=== PATIENT | female | born 1980 | race Caucasian/White ===

== ENCOUNTER 2022-05-20 16:01 | Outpatient (REF) | payer MEDICAID, SELFPAY ==
[2022-05-20 18:43] LABS: C Diff PCR Negative (Negative)
[2022-05-22 12:31] LABS: Campylobacter PCR Negative (Negative); Salmonella PCR Negative (Negative); Shiga Toxin PCR Negative (Negative); Shigella/Enteroinvasive Ecoli Negative (Negative)
[2022-05-24 21:36] LABS: Calprotectin 2255 mcg/g
== END 2022-05-20 16:02 | disposition home or self-care (01) ==
LOC: NCHCN 16:01
PROVIDERS: Visit Provider Nurse Practitioner Family
DX: R19.7 Diarrhea, unspecified (principal)
CPT/HCPCS: 87329; 87493; 87505; 83993; 87177

== ENCOUNTER 2022-08-27 10:17 | Outpatient (REF) | payer MEDICAID, SELFPAY ==
--- OUTSIDE RECORDS SUMMARY | 2022-08-27 10:21 | XMS_ITS | CCD ---
Author Name Unknown Address [address] [place] [address] [phone] Organization Unknown Address [address] [place] [address] [phone] Care Team Providers Care Brush Material Preparer Name Role Phone NEENABetiBASILIASAVANNAH Virgen Attending Physician [phone] Vital Signs Unknown or Not Available. Allergies Unknown or Not Available. Procedures Unknown or Not Available. History of Immunizations Unknown or Not Available. Problems Unknown or Not Available. Results ANTI MULLERIAN HORMONE ([facility]) * - Collect Date/Time: 04/16/2022 11:48 Test Name Code Test Result Test Units Test Ref Rang e Antimullerian Hormone, S 39498-9 1.4 N/A 0.03-5.5 ESTRADIOL E2 - Collect Date/ Time: 04/16/2022 11:48 Test Name Code Test Result Test Units Test Ref Rang e Estradiol 31 N/A See Note FSH (FOLICLE STIMULATING HOR JAQUI) - Collect Date/Time: 04/16/2022 11:48 Test Name Code Test Result Test Units Test Ref Rang e FSH 9.5 N/A See Note Active Medications Unknown or Not Available. Medications Administered During Visit Unknown or Not Available. Encounters Encounter Diagnosis Diagnosis Code Start Date Infertility study [id number] 04/16/2022 Social History Smoking Status Code Start Date End Date Never smoker [id number] Patient Decision Aids Unknown or Not Available. Discharge Instructions You were admitted to [facility] on 04/16/2022 11:35 with a principal diagnosis of Encounter for fertility testing You had the following tests done:ANTI MULLERIAN HORMONE ([facility])*ESTRADIOL E2FSH (FOLICLE STIMULATING HORMONE) You were discharged from [facility] on 04/16/2022 11:35 Should you have any questions prior to discharge, please contact a member of your healthcare team. If you have left the hospital and have any questions, please contact your primary care physician. Chief Complaint and Reason For Visit Unknown or Not Available. Function Status Unknown or Not Available. Plan of Care Unknown or Not Available. Referral/Transition of Care Unknown or Not Available.
--- OUTSIDE RECORDS SUMMARY | 2022-08-27 10:21 | XMS_ITS | CCD ---
Author Name Unknown Address [address] [place] [address] [phone] Organization Unknown Address [address] [place] [address] [phone] Care Team Providers Care Bagging Salvager Name Role Phone DARNELL COOK Attending Physician [phone] Vital Signs Unknown or Not Available. Allergies Unknown or Not Available. Procedures Unknown or Not Available. History of Immunizations Unknown or Not Available. Problems Unknown or Not Available. Results C REACTIVE PROTEIN HIGH SENS ITIVITY* - Collect Date/Time: 05/28/2022 10:49 Test Name Code Test Result Test Units Test Ref Rang e CRP-HIGH SENS. 73449-0 8.02 mg/L L=0.00 H=3 .00 CRP-HIGH SENS 94213-1 0.80 mg/dL L=0.00 H=0. 30 COMPREHENSIVE METABOLIC PANE L (CMP) - Collect Date/Time: 05/28/2022 10:49 Test Name Code Test Result Test Units Test Ref Rang e GLUCOSE 2345-7 98 mg/dL L=70 H=116 BUN 3094-0 9 mg/dL L=6 H=25 CREATININE 2160-0 0.93 mg/dL L=0.51 H=0.95 SODIUM SERUM 2951-2 139 mmol/L L=136 H=145 POTASSIUM SERUM 2823-3 3.4 mmol/L L=3.4 H=5 .2 CHLORIDE SERUM 2075-0 101 mmol/L L=96 H=110 CARBON DIOXIDE (CO2) 2028-9 32 mmol/L L=22 H=34 ANION GAP 47963-2 5.8 mmol/L CALCIUM SERUM 24254-7 8.7 mg/dL L=8.2 H=10. 2 BILIRUBIN TOTAL 1975-2 0.2 mg/dL L=0.0 H=1 .3 ALK. PHOS. 6768-6 54 U/L L=46 H=116 SGOT (AST) 1920-8 19 U/L L=15 H=37 SGPT (ALT) 1742-6 40 U/L L=12 H=78 TOTAL PROTEIN 2885-2 7.1 gm/dL L=6.0 H=8.0 ALBUMIN 1751-7 3.0 gm/dL L=3.4 H=5.0 AGE 42 years eGFR (non-Afr.Amer.) 80277-4 67 mL/min eGFR (Afr-British) 60833-6 81 mL/min HEMOGRAM + PLATELET WO DIFF - Collect Date/Time: 05/28/2022 10:49 Test Name Code Test Result Test Units Test Ref Rang e WBC 6690-2 11.34 th/cmm L=5.00 H=10.00 NRBC % 62342-4 0.0 % L=0.0 H=0.0 NRBC abs count 04733-8 0.0 mil/cmm L=0.0 H=0. 0 RBC 789-8 4.21 mil/cmm L=3.90 H=5.40 HEMOGLOBIN 718-7 12.2 gm/dL L=12.0 H=16.0 HEMATOCRIT 4544-3 38 % L=37 H=47 MCV 787-2 90 fL L=82 H=92 MCH 785-6 29.0 pg L=27.0 H=31.0 MCHC 786-4 32.2 % L=32.0 H=36.0 RDW-SD 788-0 38.5 fL L=39.0 H=49.0 PLATELET COUNT 777-3 413 th/cmm L=150 H=45 0 Active Medications Unknown or Not Available. Medications Administered During Visit Unknown or Not Available. Encounters Encounter Diagnosis Diagnosis Code Start Date Nonspecific ulcerative proctitis [id number] 05/28/2022 Social History Smoking Status Code Start Date End Date Never smoker [id number] Patient Decision Aids Unknown or Not Available. 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
--- OUTSIDE RECORDS SUMMARY | 2022-08-27 10:21 | XMS_ITS | CCD ---
Author Name Unknown Address [address] [place] [address] [id number] Organization Unknown Address [address] [place] [address] [phone] Care Team Providers Care Cafe Site Attendant Name Role Phone JESSICA ZACARIAS Attending Physician [phone] Vital Signs Unknown or Not Available. Allergies Unknown or Not Available. Procedures Unknown or Not Available. History of Immunizations Unknown or Not Available. Problems Unknown or Not Available. Results COMPREHENSIVE METABOLIC PANE L (CMP) - Collect Date/Time: 04/17/2021 08:43 Test Name Code Test Result Test Units Test Ref Rang e GLUCOSE 2345-7 94 mg/dL L=70 H=116 BUN 3094-0 18 mg/dL L=6 H=25 CREATININE 2160-0 0.96 mg/dL L=0.51 H=0.95 SODIUM SERUM 2951-2 139 mmol/L L=136 H=145 POTASSIUM SERUM 2823-3 3.8 mmol/L L=3.4 H=5 .2 CHLORIDE SERUM 2075-0 102 mmol/L L=96 H=110 CARBON DIOXIDE (CO2) 2028-9 27 mmol/L L=22 H=34 ANION GAP 78694-0 10.4 mmol/L CALCIUM SERUM 76203-7 9.4 mg/dL L=8.2 H=10. 2 BILIRUBIN TOTAL 1975-2 0.4 mg/dL L=0.0 H=1 .3 ALK. PHOS. 6768-6 37 U/L L=46 H=116 SGOT (AST) 1920-8 15 U/L L=15 H=37 SGPT (ALT) 1742-6 16 U/L L=12 H=78 TOTAL PROTEIN 2885-2 8.4 gm/dL L=6.0 H=8.0 ALBUMIN 1751-7 4.2 gm/dL L=3.4 H=5.0 AGE 41 years eGFR (non-Afr.Amer.) 22716-8 65 mL/min eGFR (Afr-Ukrainian) 38879-4 78 mL/min URIC ACID SERUM - Collect Da te/Time: 04/17/2021 08:43 Test Name Code Test Result Test Units Test Ref Rang e URIC ACID SERUM 3.5 mg/dL L=2.0 H=7 .0 CBC W/ DIFFERENTIAL* - Colle ct Date/Time: 04/17/2021 08:43 Test Name Code Test Result Test Units Test Ref Rang e WBC 6690-2 4.90 th/cmm L=5.00 H=10.00 NEUT % 54.7 % L=40.0 H=80.0 LYMPH % 31.0 % L=10.0 H=50.0 MONO % 13895-2 9.4 % L=2.0 H=12.0 EOS % 3.3 % L=0.0 H=8.0 BASO % 1.4 % L=0.0 H=3.0 IG % 2514-8 0.2 % L=0.0 H=1.1 NRBC % 68970-1 0.0 % L=0.0 H=0.0 NEUT abs count 751-8 2.7 th/cmm L=1.6 H=8. 4 LYMPH abs count 731-0 1.5 th/cmm L=1.5 H=4 .0 MONO abs count 742-7 0.5 th/cmm L=0.2 H=1. 0 EOS abs count 711-2 0.2 th/cmm L=0.0 H=0.5 BASO abs count 704-7 0.1 th/cmm L=0.0 H=0. 2 IG abs count 27326-5 0.0 th/cmm L=0.0 H=0.1 NRBC abs count 06808-3 0.0 mil/cmm L=0.0 H=0. 0 RBC 789-8 4.59 mil/cmm L=3.90 H=5.40 HEMOGLOBIN 718-7 13.5 gm/dL L=12.0 H=16.0 HEMATOCRIT 4544-3 41 % L=37 H=47 MCV 787-2 90 fL L=82 H=92 MCH 785-6 29.4 pg L=27.0 H=31.0 MCHC 786-4 32.8 % L=32.0 H=36.0 RDW-SD 788-0 39.3 fL L=39.0 H=49.0 PLATELET COUNT 777-3 250 th/cmm L=150 H=45 0 TYPE AND ANTIBODY S ARIES* - Collect Date/Time: 04/17/2021 08:43 Test Name Code Test Result Test Units Test Ref Rang e Blood Group 883-9 A N/A Rh (D) 68894-2 POSITIVE N/A Antibody Screen 1005-8 NEGATIVE N/A ANTI MULLERIAN HORMONE ([facility]) * - Collect Date/Time: 04/17/2021 08:43 Test Name Code Test Result Test Units Test Ref Rang e Antimullerian Hormone, S 39250-8 3.0 N/A 0.15-7.5 CHLAMYDIA/GC AMPLIFIED PROBE * - Collect Date/Time: 04/17/2021 08:43 Test Name Code Test Result Test Units Test Ref Rang e Chlamydia Result Negative N/A Negative GC Result Negative N/A Negative ESTRADIOL E2 - Collect Date/ Time: 04/17/2021 08:43 Test Name Code Test Result Test Units Test Ref Rang e Estradiol 51 N/A See Note FSH (FOLICLE STIMULATING HOR JAQUI) - Collect Date/Time: 04/17/2021 08:43 Test Name Code Test Result Test Units Test Ref Rang e FSH 11.4 N/A See Note HEP B SURF ANTIGEN* - [facility] t Date/Time: 04/17/2021 08:43 Test Name Code Test Result Test Units Test Ref Rang e Hep B Surface Ag Negative N/A Negative RUBELLA IGG ANTIBODY - [facility] ct Date/Time: 04/17/2021 08:43 Test Name Code Test Result Test Units Test Ref Rang e Rubella IgG Ab Positive N/A See Note SYPHILIS SEROLOGY* - Collect Date/Time: 04/17/2021 08:43 Test Name Code Test Result Test Units Test Ref Rang e Syphilis Serology Negative N/A Negativ e VARICELLA IGG ANTIBODY* - Co llect Date/Time: 04/17/2021 08:43 Test Name Code Test Result Test Units Test Ref Rang e Varicella IgG Antibody Positive N/A Se e Note Active Medications Unknown or Not Available. Medications Administered During Visit Unknown or Not Available. Encounters Encounter Diagnosis Diagnosis Code Start Date Reproductive care management [id number] 07/2020 Social History Smoking Status Code Start Date End Date Never smoker [id number] Patient Decision Aids Unknown or Not Available. Discharge Instructions You were admitted to [facility] on 04/17/2021 07:46 with a principal diagnosis of Encounter for other general counseling and advice on procreation You had the following tests done:ANTI MULLERIAN HORMONE ([facility])*CBC W/ DIFFERENTIAL*CHLAMYDIA/GC AMPLIFIED PROBE*COMPREHENSIVE METABOLIC PANEL (CMP)ESTRADIOL E2FSH (FOLICLE STIMULATING HORMONE)HEP B SURF ANTIGEN* TYPE AND ANTIBODY SCREEN*RUBELLA IGG ANTIBODYSYPHILIS SEROLOGY*URIC ACID SERUMVARICELLA IGG ANTIBODY* You were discharged from [facility] on 04/17/2021 07:46 Should you have any questions prior to [...]
[2022-08-27 15:17] LABS: TSH (W/Ref FT4) 0.57 uIU/mL (0.36-3.74)
== END 2022-08-27 10:18 | disposition home or self-care (01) ==
LOC: NCHCN 10:17
PROVIDERS: PCP Family Medicine; Visit Provider Family Medicine
DX: E03.9 Hypothyroidism, unspecified (principal)
CPT/HCPCS: 84443

== ENCOUNTER 2023-03-05 21:22 | Outpatient (REF) | payer MEDICAID, SELFPAY ==
[2023-03-05 22:45] LABS: TSH 0.66 uIU/mL (0.36-3.74)
[2023-03-06 19:53] LABS: Thyroperoxidase Antibody <28 U/mL (<=60)
[2023-03-07 09:38] LABS: Hepatitis B Surface Ag Negative (Negative)
[2023-03-07 10:06] LABS: Hepatitis C Ab w Rflx HCV PCR Negative (Negative)
[2023-03-07 10:22] LABS: HIV-1/2 Ag & Ab Screen Negative (Negative)
[2023-03-07 10:36] LABS: Hep B Core Antibody Negative (Negative)
[2023-03-07 11:14] LABS: Syphilis Serology (RPR) Negative (Negative)
[2023-03-07 11:18] LABS: Varicella IgG Antibody Positive (See Note)
[2023-03-07 11:23] LABS: Rubella IgG Ab (UVM) Positive (See Note)
[2023-03-07 12:44] LABS: Chlamydia Result Negative (Negative); GC Result Negative (Negative)
== END 2023-03-05 21:23 | disposition home or self-care (01) ==
LOC: NCHCN 21:22
PROVIDERS: PCP Family Medicine; Visit Provider Nurse Practitioner Family
DX: E03.9 Hypothyroidism, unspecified (principal); N97.8 Female infertility of other origin; Z11.3 Encounter for screening for infections with a predominantly sexual mode of transmission; Z11.4 Encounter for screening for human immunodeficiency virus [HIV]; Z11.59 Encounter for screening for other viral diseases; Z01.84 Encounter for antibody response examination
CPT/HCPCS: 86704; 86787; 86803; 87340; 87389; 87491; 87591; 84443; 86376; 86592; 86762

== ENCOUNTER 2025-05-09 10:42 | Outpatient (REF) | payer MEDICAID, SELFPAY ==
[2025-05-09 17:59] LABS: Cholesterol 204 mg/dL (<200); HDL Cholesterol 64 mg/dL (>40)
[2025-05-09 18:03] LABS: TSH 0.72 uIU/mL (0.55-4.78)
== END 2025-05-09 10:43 | disposition home or self-care (01) ==
LOC: NCHCN 10:42
PROVIDERS: PCP Family Medicine; Visit Provider Nurse Practitioner Family
DX: R79.89 Other specified abnormal findings of blood chemistry (principal); E78.5 Hyperlipidemia, unspecified
CPT/HCPCS: 80061; 84443